=== PATIENT | female | born 1990 | race African-American/Black ===

== ENCOUNTER 2018-10-08 10:30 | Emergency (ER) | payer SELFPAY ==
[~2018-10-08] VITALS: Ht 157.5 cm; Wt 59.9 kg
--- NOTE | 2018-10-08 11:00 | NUR ---
Cramping/Heavy Bleeding "was in [facility] [place] had cramps/bleeding was seen there and US was done. Not better- still bleeding I have an IUD" STATES SHE FILLED A PAD IN ONE HOUR. DENIES DIZZINESS, WEAKNESS. SKIN INTACT. CHILD AT BEDSIDE. READY FOR EVAL.
--- NOTE | 2018-10-08 11:00 | NUR ---
BRONC BUSTER AT BEDSIDE FOR BLOOD DRAW
[2018-10-08 11:05] LABS: BASOPHILS % (AUTO) 0.8 % (0.0-2.0); EOSINOPHILS % (AUTO) 1.4 % (0.0-6.0); HEMATOCRIT 37 % (33-45); HEMOGLOBIN 12.1 g/dL (11.5-14.8); LYMPHOCYTES # (AUTO) 1.8 /CMM (0.8-4.8); LYMPHOCYTES % (AUTO) 30.6 % (20.0-44.0); MEAN CORPUSCULAR HGB CONC 33 g/dl (31.0-36.0); MEAN CORPUSCULAR VOLUME 89 fL (82-100); MONOCYTES # (AUTO) 0.4 /CMM (0.1-1.30); NEUTROPHILS # (AUTO) 3.6 /CMM (1.8-8.9); NEUTROPHILS % (AUTO) 60.2 % (43.0-81.0); PLATELET COUNT (AUTO) 252 /CMM (150-450); RED BLOOD CELL COUNT(AUTO) 4.12 MIL/uL (4.0-5.2); WHITE BLOOD COUNT (AUTO) 5.9 K/uL (4.3-11.0)
--- NOTE | 2018-10-08 11:06 | NUR ---
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
[2018-10-08 11:13] LABS: CALCIUM, SERUM 8.5 mg/dL (8.5-10.1); CREATININE 0.9 mg/dL (0.6-1.3); POTASSIUM 3.8 mmol/L (3.5-5.1)
--- NOTE | 2018-10-08 11:36 | NUR ---
ULTRASOUND COMPLETE. PT GEMMA WELL
--- NOTE | 2018-10-08 11:51 | NUR ---
Patient discharged to home in stable condition. Written and verbal after care instructions given. Patient verbalizes understanding of instruction.
[2018-10-08 11:52] VITALS: BP 111/64
== END 2018-10-08 11:50 | disposition home or self-care (01) ==
LOC: ER 10:36
DX: N83.202 Unspecified ovarian cyst, left side (principal); N93.9 Abnormal uterine and vaginal bleeding, unspecified
CPT/HCPCS: 36415; 76856-TC; 80048-TC; 84702-TC; 85025-TC